=== PATIENT | male | born 1995 | race African-American/Black ===

== ENCOUNTER 2018-01-24 19:54 | Emergency (ER) | payer MEDICAID ==
[~2018-01-24] VITALS: Ht 193 cm; Wt 81.6 kg
[2018-01-24 20:03] VITALS: BP_SYST 119
[2018-01-24] MEDS ORDERED: IBUPROFEN 800 MG TABLET PO ONE ×2 (20:30→23:15)
[2018-01-24] MEDS ORDERED: LIDOCAINE 4% TOPICAL 50 ML BOTTLE MM ONE (20:30)
[2018-01-24] MEDS ORDERED: LIDOCAINE/EPI 2% 1:100000 20 ML VIAL INJ ONE (20:30)
[2018-01-24] MEDS ORDERED: BACITRACIN 1 GM OINT TP ONE (20:30)
[2018-01-24] MEDS ORDERED: DIPH-TET-PERTUS Vaccine 0.5 ML VIAL (ADACEL) I.M. ONE (20:30)
[2018-01-24 23:45] VITALS: BP_SYST 115
== END 2018-01-24 23:45 | disposition home or self-care (01) ==
LOC: SED 19:54
DX: S01.411A Laceration without foreign body of right cheek and temporomandibular area, initial encounter (principal); Z88.1 Allergy status to other antibiotic agents; W22.8XXA Striking against or struck by other objects, initial encounter; Y93.67 Activity, basketball; Y92.310 Basketball court as the place of occurrence of the external cause; Y99.8 Other external cause status
CPT/HCPCS: 70450-TC; 70486-TC; 90715; 99284

== ENCOUNTER 2018-01-30 11:00 | Emergency (ER) | payer MEDICAID ==
[~2018-01-30] VITALS: Ht 193 cm; Wt 81.6 kg
[2018-01-30 11:09] VITALS: BP_SYST 114
== END 2018-01-30 12:30 | disposition home or self-care (01) ==
LOC: SED 11:00
DX: S01.411D Laceration without foreign body of right cheek and temporomandibular area, subsequent encounter (principal); Z88.1 Allergy status to other antibiotic agents; W50.0XXD Accidental hit or strike by another person, subsequent encounter
CPT/HCPCS: 99281